=== PATIENT | female | born 1955 | race Caucasian/White ===

== ENCOUNTER 2019-05-29 21:42 | Inpatient (IN) | payer OTHER ==
[~2019-05-29] VITALS: Ht 170.2 cm; Wt 74.4 kg
[~2019-05-29 21:42] MED LIST: AMLO10 PO; CARV25 PO; CITA20 PO; FAMO20 PO; HYDACE5 PO; OTC SLEEP AID; RXCLIN PO; TRAZ50 PO
[2019-05-30 00:12] LABS: BASOPHILS ABSOLUTE AUTO 0.04 K/mm3 (0.00-0.23); BASOPHILS PERCENT AUTO 0 % (0-2); EOSINOPHILS ABSOLUTE AUTO 0.14 K/mm3 (0.00-0.68); EOSINOPHILS PERCENT AUTO 1 % (0-6); Hematocrit 40.9 % (33.0-51.0); Hemoglobin 13.5 g/dL (11.5-16.0); IMMATURE GRAN ABSOLUTE AUTO 0.07 K/mm3 (0.00-0.10); IMMATURE GRAN PERCENT AUTO 1 % (0-1); LYMPHOCYTES ABSOLUTE AUTO 1.76 K/mm3 (0.84-5.20); LYMPHOCYTES PERCENT AUTO 15 % (21-46); MONOCYTES ABSOLUTE AUTO 0.91 K/mm3 (0.16-1.47); MONOCYTES PERCENT AUTO 8 % (4-13); Mean Corpuscular Volume 97 fL (80-100); NEUTROPHILS ABSOLUTE AUTO 9.16 K/mm3 (1.96-9.15); NEUTROPHILS PERCENT AUTO 76 % (41-73); Platelet Count 289 K/mm3 (150-400); RDW Standard Deviation 50.9 fL (35.1-46.3); Red Blood Cell Count 4.22 M/mm3 (3.80-5.20); White Blood Cell Count 12.08 K/mm3 (4.00-11.30)
[2019-05-30 00:31] LABS: Alanine Aminotransfer (ALT/SGP 20 U/L (12-78); Albumin, Blood 3.5 g/dL (3.4-5.0); Alk Phos 76 U/L (50-136); Anion Gap 7 mmol/L (6-16); Aspartate Aminotrans (AST/SGOT 12 U/L (12-37); Bilirubin, Total 0.2 mg/dL (0.1-1.0); Blood Urea Nitrogen 15 mg/dL (8-24); Bun/Creatinine Ratio 25.1 (12.0-20.0); CO2, Blood 28 mmol/L (21-32); Calcium, Blood 8.3 mg/dL (8.5-10.1); Chloride, Blood 106 mmol/L (98-108); Globulin, Blood 3.6 g/dL (2.2-4.0); Glomerular Filtration Rate >60 (60-); Glucose, Blood 119 mg/dL (70-99); Potassium, Blood 3.8 mmol/L (3.5-5.5); Sodium, Blood 141 mmol/L (136-145); Total Protein, Blood 7.1 g/dL (6.4-8.2)
[2019-05-30 01:48] LABS: Source, Urine Catheter
[2019-05-30 01:51] LABS: Bilirubin, Urine Neg (Neg); Blood, Urine 1+ (Neg); Glucose Qualitative, Urine Neg (Neg); Ketones, Urine Neg (Neg); Leukocyte Esterase, Urine 1+ (Neg); Nitrite, Urine Pos (Neg); Protein, Urine Neg (Neg); Urobilinogen, Urine NORM (Normal)
[2019-05-30 01:55] LABS: Appearance, Urine Cloudy (Clear); Color, Urine Yellow (P-Yellow)
[2019-05-30 02:03] LABS: Bacteria Many /hpf; Red Blood Cells, Urine 0-2 /hpf (0-2); Squamous Epithelial Cells Not Seen /hpf (Few)
--- NOTE | 2019-05-30 02:32 | NUR ---
PT TRANSFERRED TO ROOM APPROX 0115, ORIENTED TO ROOM, PLACED IN GOWN, UNDERCLOTHING REMOVED, BECK CATHETER PLACED, ADMISSION INTERVENTIONS COMPLETE, UA SENT FOLLOWING BECK INSERTION. PT A/O X4, PLEASANT/COOPERATIVE, RATES PAIN AT 8/10. PT CEDS, NC 2L WITH SPO2 95% FOLLOWING ADMINISTRATION OF ANALGESIA PER DEC. WILL CONTINUE TO MONITOR
--- NOTE | 2019-05-30 04:58 | NUR ---
PT REMAINED A/0 X 4, PLEASANT/COOEPRATIVE, VSS. PT REPORTS PAIN WITH ANY MOVEMENT OF THE LEFT HIP, WHILE REPOSITINING. PT MEDICATED PER DEC WITH LESSENING OF PAIN REPORTS FROM 06/23 TO 03/23. BECK REMAINED PATENT AND DRAINING CLEAR YELLOW LIQUID. PT REMAINED NPO FOR PREPARATION OF SURGICAL INTERENTION TODAY. SURGICAL PACKET ON CHART, BLOOD CONSENT SIGNED.
--- NOTE | 2019-05-30 09:44 | NUR ---
DR CASTELLON WAS HERE EARLIER, REPORTED TO HOLD CERTAIN MEDS, SEE EMAR.
--- NOTE | 2019-05-30 09:45 | NUR ---
DR RAM HERE TO SEE PT. PT BEEN NPO.
--- NOTE | 2019-05-30 13:00 | NUR ---
PT TO HAVE PROCEDURE IN OWN BED WITH OTHER STAFF.
--- NOTE | 2019-05-30 13:28 | NUR ---
1310- IN PACU FOR PRE OP HOLDING. C/O SEVERE PAIN WITH ANY MOVEMENT. DIAPHORETIC. LOOSE NON-PROD COUGH. O2 ON AT 3L/MIN.
--- NOTE | 2019-05-30 14:44 | NUR ---
1420-PT IN 04/[address] MANCILLA NOTIFIED PT MED WITH FENTANYL 25MCG WHICH WORKED VERY WELL. DR ALSO NITIFIED OF PTS LOW O2 SATS. INSPIRATORY AND EXPIRATORY WHEEZES AND LOOSE COUGH. PT INSTRUCTED IN USE OF IS, VERY POOR PT EFFORT. 1445- UDN PER DR. MANCILLA. PT AGAIN NOT WANTING TO DO TRY TO USE IT BUT ENCOURAGED TO FINISH TREATMENT.
--- NOTE | 2019-05-30 15:33 | NUR ---
REPORT GIVEN TO OTHER RN HTracee. WHO WILL BE TAKING OVER CARE AT THIS TIME. PT CONT TO BE OUT OF ROOM FOR PROCEDURE.
--- NOTE | 2019-05-30 16:15 | NUR ---
ASSUMING CARE OF PT
--- NOTE | 2019-05-30 18:30 | NUR ---
05/30/19 1830 Alexis Spencer LATE ENTRY: 1703 ASSUMED CARE OF PATIENT. LEFT YAAKOV UNDERWAY. WOUND CLOSED AND DRESSING APPLIED AT 1730. PATIENT REPOSITIONED ON HANA TABLE W/ BOOTS REMOVED/LEGS SECURED W/STRAP ON PLATFORM ATTACHMENT. LEFT ARM PREPPED AND DRAPED. SURGERY OF LEFT ORIF STARTED @1755
[2019-05-31 04:45] LABS: BASOPHILS ABSOLUTE AUTO 0.02 K/mm3 (0.00-0.23); BASOPHILS PERCENT AUTO 0 % (0-2); EOSINOPHILS PERCENT AUTO 0 % (0-6); Hematocrit 36.7 % (33.0-51.0); Hemoglobin 11.5 g/dL (11.5-16.0); IMMATURE GRAN ABSOLUTE AUTO 0.05 K/mm3 (0.00-0.10); IMMATURE GRAN PERCENT AUTO 0 % (0-1); LYMPHOCYTES ABSOLUTE AUTO 0.77 K/mm3 (0.84-5.20); LYMPHOCYTES PERCENT AUTO 5 % (21-46); MONOCYTES ABSOLUTE AUTO 0.98 K/mm3 (0.16-1.47); MONOCYTES PERCENT AUTO 7 % (4-13); Mean Corpuscular HGB 31.4 pg (26.0-34.0); Mean Corpuscular HGB Conc 31.3 g/dL (31.5-36.5); Mean Platelet Volume 9.3 fL (9.1-12.4); NEUTROPHILS ABSOLUTE AUTO 12.76 K/mm3 (1.96-9.15); NEUTROPHILS PERCENT AUTO 88 % (41-73); Platelet Count 237 K/mm3 (150-400); RDW Standard Deviation 51.7 fL (35.1-46.3); Red Blood Cell Count 3.66 M/mm3 (3.80-5.20); White Blood Cell Count 14.58 K/mm3 (4.00-11.30)
[2019-05-31 04:46] LABS: Mean Corpuscular Volume 100 fL (80-100)
[2019-05-31 05:05] LABS: Anion Gap 8 mmol/L (6-16); Blood Urea Nitrogen 12 mg/dL (8-24); Bun/Creatinine Ratio 22.8 (12.0-20.0); CO2, Blood 23 mmol/L (21-32); Calcium, Blood 7.8 mg/dL (8.5-10.1); Chloride, Blood 107 mmol/L (98-108); Creatinine, Blood 0.53 mg/dL (0.40-1.00); Glomerular Filtration Rate >60 (60-); Glucose, Blood 142 mg/dL (70-99); Potassium, Blood 4.3 mmol/L (3.5-5.5); Sodium, Blood 138 mmol/L (136-145)
--- NOTE | 2019-05-31 06:46 | NUR ---
SUMMARY POD #1 PT HAS DONE WELL THROUGHTHE NIGHT. AQUACEL TO LEFT HIP REMAINS C/D/I. SPLINT TO LEFT ARM, ARM ELAVATED ON PILLOWS. ICE TO BOTH EXTREMITIES. PT CAN WIGGLE TOES AND FINGERS. CIRC WNL. VSS, O2 VIA OXIMIZER @ 5 L, CONTINUOUS BIOX AT BEDSIDE. O2 SATS REMAIN ABOVE 90%. PT STATES PAIN IS TOLERABLE. CALL LIGHT IN REACH
--- NOTE | 2019-05-31 08:54 | NUR ---
DISCUSSED PT'S STATUS WITH DR CASTELLON INCLUDING RESPIRATORY STATUS AND ABX.
--- NOTE | 2019-05-31 11:46 | NUR ---
DISCUSSED PT'S STATUS WITH DR RAM AND
--- NOTE | 2019-05-31 18:00 | NUR ---
SHIFT SUMMARY PT EATING AND DRINKING. PT UP TO CHAIR FOR MEALS OTHERWISE PT REPORTS NOT ABLE TO SIT UP VERY LONG EVEN AT HOME R/T CBP. PT BEEN ASSISTED WITH ADL'S PRN. PT HAS CONT BIOX IN PLACE. PT NOW ON 2L02NC WITH O2 SAT ABOVE 90%. I/S BEEN ENCOURAGED. CALL LIGHT IN REACH, USING APPR.
--- NOTE | 2019-06-01 04:50 | NUR ---
SHIFT SUMMARY PT POD#1 LEFT HIP + LUE PINNING. AAOX4. DISCOMFORT AT TOLERABLE LEVEL T/O NIGHT. NO NAUSEA/EMESIS. PT UP FROM CHAIR YESTARDAY EVENING TO BED, 2 PERSON MODERATE ASSIST. DRESSING TO LEFT HIP + LUE D/C/I. MOVES ALL TOES/FINGERS WELL, BRISK CAP REFILL ALL EXTREMITIES, DENIES N/T. PT RESTED WELL THIS NOC SHIFT + PT RESTING AT THIS TIME. NADN. CALL LIGHT WITHIN REACH. ENCOURAGE PT/OT TODAY + UP TO CHAIR FOR MEALS.
--- NOTE | 2019-06-01 06:30 | NUR ---
D/C CATH PER RN. CATH IN [facility] DONE
--- NOTE | 2019-06-01 15:48 | NUR ---
REPORT CALLED [facility]. AWAITING TRANSPORT AT THIS TIME.
--- NOTE | 2019-06-01 16:08 | NUR ---
PT DISCHARGED TO [facility] AT APPROXIMATLEY 1350. PT LEFT IN W/C WITH OXYGEN. VSS.
== END 2019-06-01 16:04 | DRG 469 ==
LOC: ER 21:42 → SURS 05-30 00:10
PROVIDERS: Emergency Medicine; Orthopaedic Surgery; ADMIT Hospitalist
PROC: 2W39X1Z Immobilization of Left Upper Extremity using Splint (ICD-10-PCS; 2019-05-29)
PROC: 0SRB0JA Replacement of Left Hip Joint with Synthetic Substitute, Uncemented, Open Approach (ICD-10-PCS; principal; 2019-05-30 14:15)
PROC: 0PSJ04Z Reposition Left Radius with Internal Fixation Device, Open Approach (ICD-10-PCS; 2019-05-30 14:15)
DX: S82.302A Unspecified fracture of lower end of left tibia, initial encounter for closed fracture (principal); S72.002A Fracture of unspecified part of neck of left femur, initial encounter for closed fracture; N39.0 Urinary tract infection, site not specified; W10.9XXA Fall (on) (from) unspecified stairs and steps, initial encounter; Y92.009 Unspecified place in unspecified non-institutional (private) residence as the place of occurrence of the external cause; I10 Essential (primary) hypertension; F32.9 Major depressive disorder, single episode, unspecified; G47.00 Insomnia, unspecified; M79.7 Fibromyalgia; K21.9 Gastro-esophageal reflux disease without esophagitis; F17.210 Nicotine dependence, cigarettes, uncomplicated; Z86.73 Personal history of transient ischemic attack (TIA), and cerebral infarction without residual deficits; Z88.5 Allergy status to narcotic agent; Z88.0 Allergy status to penicillin; Z79.899 Other long term (current) drug therapy
CPT/HCPCS: 29125; 36415; 71045; 72170; 73080; 73100; 73110; 73502; 80048; 80053; 81001; 85025; 87086; 88305; 88311; 93005; 93010; 94762; 96374-59; 96376-59; 97110; 97116; 97162; 97166; 97530; 99285-25; A9270; C1713; C1776; J0171; J0690; J0696; J0735; J1100; J1650; J1885; J1940; J2250; J2370; J2405; J2704; J2795; J3010; J7120

== ENCOUNTER 2019-08-10 08:18 | Day surgery (SDC) | payer OTHER | END 2019-08-10 22:35 | disposition home or self-care (01) | LOC: MOI US 08:18 | DX: C50.911 Malignant neoplasm of unspecified site of right female breast (principal); Z17.0 Estrogen receptor positive status [ER+]; Z79.899 Other long term (current) drug therapy; Z88.0 Allergy status to penicillin; Z88.5 Allergy status to narcotic agent; Z91.041 Radiographic dye allergy status | CPT/HCPCS: 19083; 76642; 77065; 88305; 88360; A4648; G0279 ==

== ENCOUNTER → 2019-10-26 | Outpatient (CLI) | payer OTHER ==
[2019-10-26 18:42] LABS: BASOPHILS ABSOLUTE AUTO 0.04 K/mm3 (0.00-0.23); BASOPHILS PERCENT AUTO 1 % (0-2); EOSINOPHILS PERCENT AUTO 2 % (0-6); Hematocrit 44.5 % (33.0-51.0); Hemoglobin 14.6 g/dL (11.5-16.0); IMMATURE GRAN ABSOLUTE AUTO 0.02 K/mm3 (0.00-0.10); IMMATURE GRAN PERCENT AUTO 0 % (0-1); LYMPHOCYTES ABSOLUTE AUTO 2.84 K/mm3 (0.84-5.20); LYMPHOCYTES PERCENT AUTO 34 % (21-46); MONOCYTES PERCENT AUTO 7 % (4-13); Mean Corpuscular HGB 29.9 pg (26.0-34.0); Mean Corpuscular HGB Conc 32.8 g/dL (31.5-36.5); Mean Corpuscular Volume 91 fL (80-100); Mean Platelet Volume 9.8 fL (9.1-12.4); NEUTROPHILS ABSOLUTE AUTO 4.65 K/mm3 (1.96-9.15); NEUTROPHILS PERCENT AUTO 56 % (41-73); Platelet Count 326 K/mm3 (150-400); RDW Standard Deviation 50.4 fL (35.1-46.3); Red Blood Cell Count 4.88 M/mm3 (3.80-5.20); White Blood Cell Count 8.35 K/mm3 (4.00-11.30)
== END | disposition home or self-care (01) ==
LOC: LAB 18:01 → LAB SHORT 18:01
PROVIDERS: Family Medicine
DX: R73.09 Other abnormal glucose (principal); K92.2 Gastrointestinal hemorrhage, unspecified
CPT/HCPCS: 83036; 85025

== ENCOUNTER 2019-10-30 07:27 | Day surgery (SDC) | payer OTHER | END 2019-10-30 23:02 | disposition home or self-care (01) | LOC: MOI US 07:27 | DX: C50.411 Malignant neoplasm of upper-outer quadrant of right female breast (principal); Z17.0 Estrogen receptor positive status [ER+] | CPT/HCPCS: 19083; 77065; 88305; 88342; 88360; A4648 ==

== ENCOUNTER 2019-11-26 05:57 | Day surgery (SDC) | payer OTHER ==
[~2019-11-26] VITALS: Ht 167.6 cm; Wt 76.2 kg
[~2019-11-26 05:57] MED LIST changes: +Colace100 MG PO; +TRAZ100 PO; +TYLENOL PM PO; +Zofran4 MG PO
--- NOTE | 2019-11-26 08:09 | NUR ---
PT ADMITTED TO [facility]. AGREES WITH PLANNED SURGERY. LUNG SOUNDS DIMINSHED T/O.
[2019-11-26 08:53] LABS: Anion Gap 5 mmol/L (6-16); Blood Urea Nitrogen 10 mg/dL (8-24); Bun/Creatinine Ratio 15.1 (12.0-20.0); CO2, Blood 28 mmol/L (21-32); Chloride, Blood 108 mmol/L (98-108); Creatinine, Blood 0.66 mg/dL (0.40-1.00); Glomerular Filtration Rate >60 (60-); Glucose, Blood 106 mg/dL (70-99); Potassium, Blood 4.1 mmol/L (3.5-5.5); Sodium, Blood 141 mmol/L (136-145)
== END 2019-11-26 11:36 | disposition home or self-care (01) ==
LOC: ORSCMMR 05:57 → ORD 09:00 → ORSCMMR 09:00
PROVIDERS: Surgery
PROC: B543ZZA Ultrasonography of Right Jugular Veins, Guidance (ICD-10-PCS; principal; 2019-11-26 09:00)
PROC: 05HM33Z Insertion of Infusion Device into Right Internal Jugular Vein, Percutaneous Approach (ICD-10-PCS; principal; 2019-11-26 09:00)
DX: C50.411 Malignant neoplasm of upper-outer quadrant of right female breast (principal); I10 Essential (primary) hypertension; F17.210 Nicotine dependence, cigarettes, uncomplicated; K21.9 Gastro-esophageal reflux disease without esophagitis; Z79.899 Other long term (current) drug therapy
CPT/HCPCS: 77001; 80048; A9270-GY; C1788; J0690; J1642; J2250; J2704; J3010; J7120

== ENCOUNTER → 2019-12-28 | Outpatient (CLI) | payer OTHER ==
[2019-12-28 12:37] LABS: Alanine Aminotransfer (ALT/SGP 22 U/L (12-78); Albumin, Blood 2.9 g/dL (3.4-5.0); Albumin/Globulin Ratio 0.8 (0.8-1.8); Alk Phos 91 U/L (50-136); Anion Gap 7 mmol/L (6-16); Aspartate Aminotrans (AST/SGOT 21 U/L (12-37); Bilirubin, Total 0.2 mg/dL (0.1-1.0); Blood Urea Nitrogen 10 mg/dL (8-24); Bun/Creatinine Ratio 15.4 (12.0-20.0); CO2, Blood 28 mmol/L (21-32); Calcium, Blood 8.9 mg/dL (8.5-10.1); Chloride, Blood 105 mmol/L (98-108); Creatinine, Blood 0.65 mg/dL (0.40-1.00); Globulin, Blood 3.8 g/dL (2.2-4.0); Glomerular Filtration Rate >60 (60-); Glucose, Blood 165 mg/dL (70-99); Potassium, Blood 4.9 mmol/L (3.5-5.5); Sodium, Blood 140 mmol/L (136-145); Total Protein, Blood 6.7 g/dL (6.4-8.2)
== END ==
LOC: LAB SHORT 11:21 → LAB 11:21
PROVIDERS: Internal Medicine Hematology & Oncology
DX: C50.919 Malignant neoplasm of unspecified site of unspecified female breast (principal); R42 Dizziness and giddiness; Z17.1 Estrogen receptor negative status [ER-]
CPT/HCPCS: 80053

== ENCOUNTER → 2020-03-31 | Outpatient (CLI) | payer OTHER ==
[2020-03-31 19:57] LABS: BASOPHILS ABSOLUTE AUTO 0.07 K/mm3 (0.00-0.23); BASOPHILS PERCENT AUTO 1 % (0-2); EOSINOPHILS ABSOLUTE AUTO 0.34 K/mm3 (0.00-0.68); EOSINOPHILS PERCENT AUTO 4 % (0-6); Hematocrit 42.7 % (33.0-51.0); Hemoglobin 13.7 g/dL (11.5-16.0); IMMATURE GRAN ABSOLUTE AUTO 0.02 K/mm3 (0.00-0.10); IMMATURE GRAN PERCENT AUTO 0 % (0-1); LYMPHOCYTES ABSOLUTE AUTO 1.81 K/mm3 (0.84-5.20); LYMPHOCYTES PERCENT AUTO 23 % (21-46); MONOCYTES ABSOLUTE AUTO 0.65 K/mm3 (0.16-1.47); MONOCYTES PERCENT AUTO 8 % (4-13); Mean Corpuscular HGB 33.2 pg (26.0-34.0); Mean Corpuscular HGB Conc 32.1 g/dL (31.5-36.5); Mean Corpuscular Volume 103 fL (80-100); Mean Platelet Volume 9.7 fL (9.1-12.4); NEUTROPHILS ABSOLUTE AUTO 5.04 K/mm3 (1.96-9.15); NEUTROPHILS PERCENT AUTO 64 % (41-73); Platelet Count 282 K/mm3 (150-400); RDW Coefficient Variation 15.3 % (11.7-14.2); RDW Standard Deviation 59.7 fL (35.1-46.3); Red Blood Cell Count 4.13 M/mm3 (3.80-5.20); White Blood Cell Count 7.93 K/mm3 (4.00-11.30)
[2020-03-31 20:50] LABS: Alanine Aminotransfer (ALT/SGP 22 U/L (12-78); Albumin, Blood 3.9 g/dL (3.4-5.0); Albumin/Globulin Ratio 1.1 (0.8-1.8); Alk Phos 74 U/L (50-136); Anion Gap 7 mmol/L (6-16); Aspartate Aminotrans (AST/SGOT 12 U/L (12-37); Bilirubin, Total 0.4 mg/dL (0.1-1.0); Blood Urea Nitrogen 7 mg/dL (8-24); Bun/Creatinine Ratio 10.3 (12.0-20.0); CO2, Blood 27 mmol/L (21-32); Calcium, Blood 8.9 mg/dL (8.5-10.1); Chloride, Blood 106 mmol/L (98-108); Creatinine, Blood 0.68 mg/dL (0.40-1.00); Globulin, Blood 3.5 g/dL (2.2-4.0); Glomerular Filtration Rate >60 (60-); Glucose, Blood 100 mg/dL (70-99); Potassium, Blood 3.9 mmol/L (3.5-5.5); Sodium, Blood 140 mmol/L (136-145); Total Protein, Blood 7.4 g/dL (6.4-8.2)
== END ==
LOC: LAB SHORT 15:36 → LAB 15:36
PROVIDERS: Internal Medicine Hematology & Oncology
DX: C50.919 Malignant neoplasm of unspecified site of unspecified female breast (principal)
CPT/HCPCS: 80053; 85025

== ENCOUNTER 2020-04-25 08:45 | Day surgery (SDC) | payer OTHER ==
[~2020-04-25] VITALS: Ht 167.6 cm; Wt 75.1 kg
[~2020-04-25 08:45] MED LIST changes: +DIPH50 PO; +LOPE2C PO; +PRED20 PO
--- NOTE | 2020-04-25 10:49 | NUR ---
History, Chart, Medications and Allergies reviewed before start of procedure. LS DIMINISHED T.O, COURSE COUGH NOTED. Patient confirms NPO status and agrees with scheduled surgery. Pre-Op teaching done. Pt verbalizes understanding. Patient States Post-Procedure ride home has been arranged.
--- NOTE | 2020-04-25 14:30 | NUR ---
DECREASE SATS, TITRATED O2/NC TO KEEP SATS >90%. LUNGS WET/COURSE/WHEEZE NOTED, WILL GIVE DUO NEBULIZER PER ORDERS.
--- NOTE | 2020-04-25 16:11 | NUR ---
PATIENT REQUIRING O2 4L/NC TO KEEP SATS >90%. INCENTIVE SPIROMETRY AND COUGH AND DEEP BREATHING EXERCISES BEING DONE. OXYGEN LEVELS IMPROVING AND TITRATING O2 TO 1L/NC WITH SATS 91%. WHEN O2 TURNED OFF, PATIENTS SATS REMAINING AT 88%. REPOSITION PATIENT TO DANGLE AT BEDSIDE WITH VERY SLIGHT IMPROVEMENT TO 89 TO 90%. CALL OUT TO DR GORDON WITH UPDATE.
--- NOTE | 2020-04-25 16:18 | NUR ---
DR GORDON CALLED BACK, NEW ORDERS FOR EXTENDED STAY DUE TO O2 DEMANDS. WILL PLACE ORDER AND GET A ROOM ASSIGNMENT.
--- NOTE | 2020-04-25 16:20 | NUR ---
04/25/20 1620 Alanna Montana VERIFICATIONS: EDIT CHART.
--- NOTE | 2020-04-25 16:54 | NUR ---
REPORTED OFF TO LEE ESPOSITO RN. PATIENT STABLE WITH 1L/NC IN PLACE.
--- NOTE | 2020-04-26 04:51 | NUR ---
SHIFT SUMMARY POD 1 R. MASTECTOMY. BREAST BINDER AND DRESSING IN PLACE, APPEARS CDI WITHOUT ANY NOTED DRAINAGE. KEREN TO RUQ APPEARS CDI WITH BULB COMPRESSED AND DRAINING SANGUINEOUS FLUID. PAIN MANAGED WITH 2 NORCO TABS. UP IN ROOM W/SBA, AMBULATING TO BATHROOM. IS VOIDING, VSS. SPO2 AT 93% ON 0.5L NC, ENCOURAGED FREQUENT TURN/COUGH/DB. WILL CONT TO MONITOR AND GIVE REPORT TO ONCOMING RN.
--- NOTE | 2020-04-26 08:47 | NUR ---
O2 LEVELS PT TAKES OFF O2 TO EAT BREAKFAST. REFUSES TO PLACE UNTIL FINISHED WITH BREAKFAST. AFTER MEAL, PT SATS AT 86%. 1L NC PLACED. AFTER 3 MINS O2 LEVELS ARE AT 92%.
--- NOTE | 2020-04-26 12:16 | NUR ---
O2 EVAL PT DOES NOT QUALIFY FOR HOME O2. O2 SAT WENT UP WITH AMBULATION. WHEN RESTING IN BED POST THIS WALK, O2 SATS 87% ON RA. 1L APPLIED AND SATS INCREASED. DR GORDON UPDATED. WILL CONTINUE TO MONITOR, ENCOURAGED TCDB, AND IS USE. SPOUSE CALLED AND UPDATED WITH PLAN OF CARE PER PT REQUEST.
--- NOTE | 2020-04-26 13:54 | NUR ---
Patient is lying in bed and alert. Patient tells me about her recent surgery and the favorable results. Patient explains about the many surgeries and medical challenges she has had to overcome. Patient explains about her spouse of 21 years (not officially ) and the wonderful relationship that she has with him. Patient speaks of her Christianity tiago and the spiritual journey she has been on for so many years. Patient tells me personal information and about her fears. I provide therapeutic listening and prayer. I also normalize patient's experience and reinforce helpful attitudes and practices. I will continue to remain available to patient and family.
--- NOTE | 2020-04-26 15:33 | NUR ---
RA TRIAL PT DID BETTER WITH THIS TRIAL BUT STILL DROPPED BELOW 90%. AFTER O2 TURNED OFF PT DROPPED TO 88% AND MAINTAINED THERE FOR 3 MINS. O2 TURNED BACK ON TO 1L. PT RETURNED TO ABOVE 90% AFTER 2 MINS. PT'S DRY COUGH HAS BECOME PRODUCTIVE. FINE WHEEZE T/O LUNG SOUNDS. PT REPORTS SHE FEELS SHE IS BREATHING BETTER.
--- NOTE | 2020-04-26 17:58 | NUR ---
SHIFT SUMMARY PT HAS DONE WELL TODAY BUT UNFORTUNATLY UNABLE TO WEAN O2 OFF. PAIN WELL CONTROLLED, AMBULATING, VOIDING, PASSING GAS & BM.
--- NOTE | 2020-04-27 00:02 | NUR ---
ASSUMED PT CARE FROM CARLINE HOWARD AT 1930 PT RESTING IN BED ALERT AND ORIENTED AND ABLE TO MAKE NEEDS KNOWN. BREAST BINDER IN PLACE WITH KEREN DRAIN NOTED TO RIGHT CHEST WALL; SEROSANGUINEOUS DRAINAGE NOTED IN BULB, WHICH IS COMPRESSED. PRN NORCO GIVEN WITH HS MEDICATIONS WITH EFFECT. PT IS A SBA TO BATHROOM. SHE REMAINS ON 1L OXYGEN VIA NC WITH BIOX LOW 90'S. WILL ENCOURAGE DEEP BREATHING AND COUGHING, WELL USE OF INCENTIVE SPIROMETER WHILE AWAKE. WILL ATTEMPT TO WEAN FROM OXYGEN IN THE AM PT IS CURRENTLY ASLEEP AT THIS TIME. CALL LIGHT IS WITHIN REACH; SHE IS ABLE TO REPOSITION SELF IN BED AND MAKE NEEDS KNOWN.
--- NOTE | 2020-04-27 01:25 | NUR ---
O2 WEAN PLACED PT ON ROOM AIR; PULSE OX IN PLACE. WILL CONTINUE TO MONITOR OXYGEN SATURATIONS. CURRENTLY AT 90% ON ROOM AIR.
--- NOTE | 2020-04-27 01:30 | NUR ---
PLACED BACK ON OXYGEN PT QUICKLY DROPPED TO 84% ON ROOM AIR WHILE SLEEPING. PLACED BACK ON 1L OF OXYGEN VIA NC; OXYGEN SATURATIONS CURRENTLY AT 92%
--- NOTE | 2020-04-27 04:58 | NUR ---
END OF SHIFT SUMMARY NO SIGNIFICANT CHANGES SINCE ASSUMED PT CARE NOTE. KEREN DRAIN PUT OUT 20CC OF SEROSANGUINEOUS DRAINGE. PT MEDICATED FOR PAIN X1 THIS SHIFT. BREAST BINDER REMAINS IN PLACE. PT ABLE TO AMBULATE TO BATHROOM INDEPENDENTLY. REMAINED ON 1L OF OXYGEN T/O NIGHT. ATTEMPTED WEAN X2 THIS SHIFT. PT ABLE TO MAINTAIN ON ROOM AIR WITH OXYGEN SATURATIONS 88-90%. HOWEVER, WHILE SLEEPING OXYGEN SATURATIONS DROPPED TO 84%. PT PLACED BACK ON 1L OF OXYGEN. PT STATES AT HOME SHE OCCASIONALLY FEELS LIGHT HEADED AT TIMES; HOWEVER, DOES NOT HAVE ANY WAY TO MONITOR HER OXYGEN LEVELS. PT CLAIMS SHE SMOKES ABOUT 6 CIGARETTES PER DAY X30 YEAR HISTORY OF SMOKING. SHE HAS A PRODUCTIVE COUGH. LUNG SOUNDS FLUCUTATE BETWEEN BEING WHEEZY, COARSE, AND DIMINISHED. SHE IS ABLE TO DEEP BREATHE AND COUGH EFFECTIVELY. WILL CONTINUE TO MONITOR UNTIL REPORT IS HANDED OFF TO ONCOMING RN.
--- NOTE | 2020-04-27 13:57 | NUR ---
Patient is sitting up in bed and watching "The Finn is Right." Patient struggles to concentrate while "her show" is on. Patient does talk about my previous visit and that my visit was what she was praying for. I Patient discusses the many health struggles and what she may be facing. I listen empathically and provide pastoral family counselor( between [employer]) and prayer. Patient responds well and shows signs of an elevated mood. I will continue to remain available to patient and family.
--- NOTE | 2020-04-27 18:20 | NUR ---
DISCHARGE PT ESCORTED OUT VIA W/C. O2 DELIVERED FROM [facility]. PAIN WEL CONTROLLED. EATING, DRINKING, VOIDING, BM'S. AMBULATING WELL. DR GORDON ROUNDED AND DISCHARGE ORDERS RECIEVED. [facility] PROVIDING TRANSPORTATION.
== END 2020-04-27 18:30 | disposition home or self-care (01) ==
LOC: NM 08:45 → ORSCMMR 08:45 → NM 10:00 → SURS 16:53 → ORSCMMR 04-27 18:30 → SURS 04-27 18:30 → NM 04-27 18:30
PROVIDERS: Surgery
PROC: 0HBT0ZZ Excision of Right Breast, Open Approach (ICD-10-PCS; principal; 2020-04-25 11:00)
PROC: 07B50ZX Excision of Right Axillary Lymphatic, Open Approach, Diagnostic (ICD-10-PCS; principal; 2020-04-25 11:00)
DX: C50.411 Malignant neoplasm of upper-outer quadrant of right female breast (principal); C77.3 Secondary and unspecified malignant neoplasm of axilla and upper limb lymph nodes; I10 Essential (primary) hypertension; F17.210 Nicotine dependence, cigarettes, uncomplicated; K21.9 Gastro-esophageal reflux disease without esophagitis; Z79.899 Other long term (current) drug therapy
CPT/HCPCS: 38792; 88307; 88342; 94761; A9270-GY; A9520; J0690; J1100; J2250; J2370; J2405; J2704; J2710; J2765; J3010; J7120; Q9968

== ENCOUNTER → 2021-07-13 | Outpatient (CLI) | payer OTHER ==
[2021-07-13 20:16] LABS: Alanine Aminotransfer (ALT/SGP 15 U/L (12-78); Albumin, Blood 3.6 g/dL (3.4-5.0); Alk Phos 71 U/L (50-136); Anion Gap 5 mmol/L (6-16); Aspartate Aminotrans (AST/SGOT 12 U/L (12-37); Bilirubin, Total 0.3 mg/dL (0.1-1.0); Blood Urea Nitrogen 6 mg/dL (8-24); Bun/Creatinine Ratio 9.5 (12.0-20.0); CHOL/HDL RATIO 7.4; CO2, Blood 26 mmol/L (21-32); Calcium, Blood 9.2 mg/dL (8.5-10.1); Chloride, Blood 109 mmol/L (98-108); Cholesterol 206 mg/dL (50-200); Creatinine, Blood 0.63 mg/dL (0.40-1.00); Globulin, Blood 3.7 g/dL (2.2-4.0); Glomerular Filtration Rate >60 (60-); Glucose, Blood 90 mg/dL (70-99); HDL Cholesterol 28 mg/dL (>39); LDL/HDL RATIO Unable to Calculate; Low Density Lipoprotein Chol Unable to Calculate mg/dL (0-110); Sodium, Blood 140 mmol/L (136-145); Total Protein, Blood 7.3 g/dL (6.4-8.2); Triglycerides 422 mg/dL (30-160); Very Low Density Lipoprot Chol Unable to Calculate mg/dL (6-32)
== END | disposition home or self-care (01) ==
LOC: LAB 17:25 → LAB SHORT 17:25
PROVIDERS: Family Medicine
DX: I10 Essential (primary) hypertension (principal); E78.5 Hyperlipidemia, unspecified
CPT/HCPCS: 80053; 80061

== ENCOUNTER 2023-10-10 22:37 | Emergency (ER) | payer OTHER ==
[~2023-10-10] VITALS: Ht 170.2 cm; Wt 56.2 kg
[~2023-10-10 22:37] MED LIST changes: +CARV6.25 PO; +CITALOPRAM HBR10 MG PO; +Desyrel150 MG PO; +GNP PAIN RLF P1 EACH PO; -TRAZ100 PO; -TYLENOL PM PO
[2023-10-11 02:30] VITALS: BP 142/76
--- NOTE | 2023-10-14 23:42 | NUR ---
REVIEWED PT'S INFORMATION R/T CURRENT ADMISSION
== END 2023-10-11 02:47 | disposition home or self-care (01) ==
LOC: ER 22:37
DX: U07.1 COVID-19 (principal); S70.02XA Contusion of left hip, initial encounter; J44.9 Chronic obstructive pulmonary disease, unspecified; W01.10XA Fall on same level from slipping, tripping and stumbling with subsequent striking against unspecified object, initial encounter; Z88.0 Allergy status to penicillin; Z88.5 Allergy status to narcotic agent; Z88.6 Allergy status to analgesic agent; Z91.02 Food additives allergy status; Z79.899 Other long term (current) drug therapy; Z79.52 Long term (current) use of systemic steroids; K21.9 Gastro-esophageal reflux disease without esophagitis; G47.00 Insomnia, unspecified; I10 Essential (primary) hypertension; F17.200 Nicotine dependence, unspecified, uncomplicated
CPT/HCPCS: 71045; 73502; 93005; 93010; 96374; 99284-25; A9270; J1885; J7512

== ENCOUNTER 2023-10-14 17:44 | Inpatient (IN) | payer OTHER ==
[~2023-10-14] VITALS: Ht 157.5 cm; Wt 54.4 kg
[2023-10-14 19:21] LABS: Hematocrit 35.4 % (33.0-51.0); Hemoglobin 12.1 g/dL (11.5-16.0); Mean Corpuscular HGB 33.2 pg (26.0-34.0); Mean Corpuscular HGB Conc 34.2 g/dL (31.5-36.5); Mean Corpuscular Volume 97 fL (80-100); Mean Platelet Volume 9.5 fL (9.1-12.4); NRBC ABSOLUTE 0.03 K/mm3 (0.00-0.02); NRBC Auto 0.2 /100 WBC (0.0-0.2); Platelet Count 304 K/mm3 (150-400); RDW Coefficient Variation 13.9 % (11.7-14.2); RDW Standard Deviation 49.1 fL (35.1-46.3); Red Blood Cell Count 3.64 M/mm3 (3.80-5.20); White Blood Cell Count 12.38 K/mm3 (4.00-11.30)
[2023-10-14 19:41] LABS: Albumin, Blood 2.6 g/dL (3.4-5.0); Albumin/Globulin Ratio 0.6 (0.8-1.8); Bilirubin, Total 0.5 mg/dL (0.1-1.0); Bun/Creatinine Ratio 23.7 (12.0-20.0); Calcium, Blood 8.8 mg/dL (8.5-10.1); Creatinine, Blood 0.47 mg/dL (0.40-1.00); Globulin, Blood 4.7 g/dL (2.2-4.0); Potassium, Blood 3.2 mmol/L (3.5-5.5); Total Protein, Blood 7.3 g/dL (6.4-8.2)
[2023-10-14 20:16] LABS: BAND PERCENT MAN 41 % (0-8); BASOPHILS PERCENT MAN 0 % (0-2); EOSINOPHILS PERCENT MAN 0 % (0-6); LYMPHOCYTES ABSOLUTE MAN 0.99 K/mm3 (0.84-5.20); LYMPHOCYTES PERCENT MAN 8 % (21-46); METAMYELOCYTE ABSOLUTE MAN 0.12 K/mm3 (0.00-0.00); METAMYELOCYTE PERCENT MAN 1 % (0-0); MONOCYTES ABSOLUTE MAN 0.99 K/mm3 (0.16-1.47); MONOCYTES PERCENT MAN 8 % (4-13); NEUTROPHILS ABSOLUTE MAN 10.27 K/mm3 (1.96-9.15); SEG NEUTROPHILS PERCENT MAN 42 % (41-73); TOTAL CELLS COUNTED 100
[2023-10-14 20:58] LABS: Source, Urine Straight Cath
[2023-10-14 21:12] LABS: Bilirubin, Urine Neg (Neg); Blood, Urine 3+ (Neg); Glucose Qualitative, Urine Neg (Neg); Ketones, Urine 2+ (Neg); Leukocyte Esterase, Urine 1+ (Neg); Nitrite, Urine Neg (Neg); Protein, Urine 3+ (Neg); Urobilinogen, Urine 1+ (Normal)
[2023-10-14 21:19] LABS: U Amphetamine Screen Not Detected; U Barbituate Screen Not Detected; U Benzodiazapine Screen Not Detected; U Buprenorphine Screen DETECTED; U Cannabinoids Screen Not Detected; U Cocaine Screen Not Detected; U Methadone Screen Not Detected; U Methamphetamine Screen Not Detected; U Opiates Screen Not Detected; U Oxycodone Screen Not Detected; U Phencyclidine Screen Not Detected
[2023-10-14 21:26] LABS: Color, Urine Yellow (P-Yellow)
[2023-10-14 21:27] LABS: Appearance, Urine Clear (Clear)
[2023-10-14 21:29] LABS: Amorphous Light (0-Heavy); Bacteria Mod /hpf; Mucus Mod (0-Heavy); Red Blood Cells, Urine 0-2 /hpf (0-2); Squamous Epithelial Cells Not Seen /hpf (Few)
[2023-10-14 22:28] LABS: Influenza A, PCR NEGATIVE (NEGATIVE); Influenza B, PCR NEGATIVE (NEGATIVE); Resp Syncytial Virus, PCR NEGATIVE (NEGATIVE); SARS-Cov-2 (COVID-19) PCR, MMC NEGATIVE (NEGATIVE)
[2023-10-15 00:48] VITALS: BP 114/81
[2023-10-15 04:06] VITALS: BP 111/66
[2023-10-15 05:51] LABS: Hematocrit 32.4 % (33.0-51.0); Mean Corpuscular HGB 32.4 pg (26.0-34.0); Mean Corpuscular Volume 96 fL (80-100); Mean Platelet Volume 9.6 fL (9.1-12.4); Platelet Count 312 K/mm3 (150-400); RDW Standard Deviation 48.2 fL (35.1-46.3); Red Blood Cell Count 3.39 M/mm3 (3.80-5.20); White Blood Cell Count 9.89 K/mm3 (4.00-11.30)
[2023-10-15 06:11] LABS: Bun/Creatinine Ratio 33.2 (12.0-20.0); Calcium, Blood 8.7 mg/dL (8.5-10.1); Creatinine, Blood 0.51 mg/dL (0.40-1.00); Potassium, Blood 3.1 mmol/L (3.5-5.5)
[2023-10-15 06:36] LABS: BAND PERCENT MAN 14 % (0-8); BASOPHILS PERCENT MAN 0 % (0-2); EOSINOPHILS PERCENT MAN 0 % (0-6); LYMPHOCYTES ABSOLUTE MAN 0.19 K/mm3 (0.84-5.20); LYMPHOCYTES PERCENT MAN 2 % (21-46); MONOCYTES ABSOLUTE MAN 0.19 K/mm3 (0.16-1.47); MONOCYTES PERCENT MAN 2 % (4-13); NEUTROPHILS ABSOLUTE MAN 9.49 K/mm3 (1.96-9.15); SEG NEUTROPHILS PERCENT MAN 82 % (41-73); TOTAL CELLS COUNTED 100
--- NOTE | 2023-10-15 06:37 | NUR ---
report from er received pt arrived a/o very out of breath. pt removed o2 and went to bath room she stated shes been this way for a while now. i didnt see any distress with her sob. once back in bed pt placed on 4L nc and o2 monitored. pt very pleasent answers all questons and isnt in ant distress, swallow intach so snacks given. pt medicated per order of . ivf infusing. pt assisted several times to bathroom having loose stools so sample will be gotten.
[2023-10-15 07:07] VITALS: BP 129/71
[2023-10-15 15:23] VITALS: BP 146/71
--- NOTE | 2023-10-15 17:01 | NUR ---
PT AOX4 AND IS COOPERATIVE OF CARE. PT DOES SEEM TO HAVE ANXIETY ABOUT HER PAST AND TALKS A LOT ABOUT AN EX BOY FRIEND. PT IS ABLE TO MAKE NEEDS KNOWN, BUT HAS FORGOT TO CALL. PT CONTINUES TO HAVE SOB WHEN AMBULATING AROUND AND NEEDS TO HAVE HER 4L O2 ON OR SHE DESATS FAST. CALL LIGHT IS WITHIN REACH WILL CONTINUE TO MONITOR.
[2023-10-15 19:12] VITALS: BP 139/79
[2023-10-16 03:19] LABS: Campylobacter Sp Not Detected (NOT DETECT)
[2023-10-16 03:20] LABS: Adenovirus F 40/41 Not Detected (NOT DETECT); Astrovirus Not Detected (NOT DETECT); Cryptosporidium Not Detected (NOT DETECT); Cyclospora Cayetanensis Not Detected (NOT DETECT); E. Coli O157 Not Detected (NOT DETECT); Entamoeba Histolytica Not Detected (NOT DETECT); Enteroaggregative E. coli-EAEC Not Detected (NOT DETECT); Enteropathogenic E. coli-EPEC Not Detected (NOT DETECT); Enterotoxigenic E. coli-ETEC Not Detected (NOT DETECT); Giardia Lamblia Not Detected (NOT DETECT); Norovirus GI/GII Not Detected (NOT DETECT); Plesiomonas Shigelloides Not Detected (NOT DETECT); Rotavirus A Not Detected (NOT DETECT); Salmonella Sp Not Detected (NOT DETECT); Sapovirus Not Detected (NOT DETECT); Shiga Toxin-prod E. coli-STEC Not Detected (NOT DETECT); Shigella/Enteroin E. coli-EIEC Not Detected (NOT DETECT); Vibrio Cholerae Not Detected (NOT DETECT); Vibrio Sp Not Detected (NOT DETECT); Yersinia Enterocolitica Not Detected (NOT DETECT)
[2023-10-16 05:16] VITALS: BP 135/72
--- NOTE | 2023-10-16 05:17 | NUR ---
SHIFT SUMMARY PT ADMIT FOR COPD EXACERBATION. STOOL COLLECTED TO RULE OUT CDIF. ALL TESTING NEGATIVE. PT ON 4L NC. EXTREME WEAKNESS ON LEFT SIDE. CANNOT RAISE LEFT ARM ABOVE HEAD WITHOUT PAIN. PT STATED SHE IS HOMELESS AND HAS NOWHERE TO GO ONCE DC'D FROM HOSPITAL. HAIR WAS MATTED TO SCALP. THIS RN WASHED PT'S HAIR WITH SHOWER CAP AND COMBED THROUGH ALL OF HER HAIR. WAS ABLE TO REMOVE MATTING AND BRAIDED TO PULL BACK AND OUT OF PT'S FACE.
[2023-10-16 05:29] LABS: BASOPHILS ABSOLUTE AUTO 0.01 K/mm3 (0.00-0.23); BASOPHILS PERCENT AUTO 0 % (0-2); EOSINOPHILS PERCENT AUTO 0 % (0-6); Hematocrit 31.7 % (33.0-51.0); Hemoglobin 10.7 g/dL (11.5-16.0); IMMATURE GRAN ABSOLUTE AUTO 0.09 K/mm3 (0.00-0.10); IMMATURE GRAN PERCENT AUTO 1 % (0-1); LYMPHOCYTES ABSOLUTE AUTO 0.69 K/mm3 (0.84-5.20); LYMPHOCYTES PERCENT AUTO 6 % (21-46); MONOCYTES ABSOLUTE AUTO 0.28 K/mm3 (0.16-1.47); MONOCYTES PERCENT AUTO 2 % (4-13); Mean Corpuscular HGB 31.8 pg (26.0-34.0); Mean Corpuscular HGB Conc 33.8 g/dL (31.5-36.5); Mean Corpuscular Volume 94 fL (80-100); Mean Platelet Volume 9.3 fL (9.1-12.4); NEUTROPHILS PERCENT AUTO 91 % (41-73); Platelet Count 348 K/mm3 (150-400); RDW Coefficient Variation 14.1 % (11.7-14.2); RDW Standard Deviation 48.8 fL (35.1-46.3); Red Blood Cell Count 3.36 M/mm3 (3.80-5.20); White Blood Cell Count 11.47 K/mm3 (4.00-11.30)
[2023-10-16 05:58] LABS: Albumin, Blood 2.2 g/dL (3.4-5.0); Albumin/Globulin Ratio 0.5 (0.8-1.8); Bilirubin, Total 0.2 mg/dL (0.1-1.0); Bun/Creatinine Ratio 46.5 (12.0-20.0); Calcium, Blood 8.5 mg/dL (8.5-10.1); Creatinine, Blood 0.43 mg/dL (0.40-1.00); Globulin, Blood 4.3 g/dL (2.2-4.0); Potassium, Blood 3.6 mmol/L (3.5-5.5); Total Protein, Blood 6.5 g/dL (6.4-8.2)
[2023-10-16 07:33] VITALS: BP 144/87
[2023-10-16 15:53] VITALS: BP 117/66
--- NOTE | 2023-10-16 16:25 | NUR ---
NO ACUTE CHANGES PT IS AOX4 AND COOPERATIVE OF CARE. PT DID START SHIFT WITH A ROUND OF DIARHEA. DR DAVENPORT WAS NOTIFIED AND WAS ALSO INFORMED OF PT STATING SHE HAS A HISTORY OF IBS. MEDICATION WAS ADDED TO EMAR AND ADMINISTERED. PT ALSO DID WELL AMBULATING WITH RT FOR HOME O2 EVAL WITH WALKER. CALL LIGHT IS WITHIN REACH AND CHAIR AND BED ALARM IN USE. WILL CONTINUE TO MONITOR.
[2023-10-16 19:31] VITALS: BP 151/93
[2023-10-17 05:47] VITALS: BP 152/80
--- NOTE | 2023-10-17 06:20 | NUR ---
SHIFT SUMMARY PT SLEPT THROUGH NIGHT. NO COMPLAINTS OR PROBLEMS. PT STATES SHE HAS BEEN FREE OF HEADACHES AND ABLE TO SLEEP WELL SINCE HAVING HAIR MATTING RESOLVED.
[2023-10-17 06:23] LABS: Hematocrit 33.5 % (33.0-51.0); Hemoglobin 11.3 g/dL (11.5-16.0); Mean Corpuscular HGB 32.2 pg (26.0-34.0); Mean Corpuscular HGB Conc 33.7 g/dL (31.5-36.5); Mean Corpuscular Volume 95 fL (80-100); Mean Platelet Volume 9.3 fL (9.1-12.4); Platelet Count 311 K/mm3 (150-400); RDW Coefficient Variation 14.1 % (11.7-14.2); Red Blood Cell Count 3.51 M/mm3 (3.80-5.20); White Blood Cell Count 6.08 K/mm3 (4.00-11.30)
[2023-10-17 06:47] LABS: Albumin, Blood 2.3 g/dL (3.4-5.0); Albumin/Globulin Ratio 0.5 (0.8-1.8); Bilirubin, Total 0.3 mg/dL (0.1-1.0); Bun/Creatinine Ratio 40.9 (12.0-20.0); Calcium, Blood 9.1 mg/dL (8.5-10.1); Creatinine, Blood 0.51 mg/dL (0.40-1.00); Globulin, Blood 4.2 g/dL (2.2-4.0); Potassium, Blood 4.1 mmol/L (3.5-5.5); Total Protein, Blood 6.5 g/dL (6.4-8.2)
[2023-10-17 08:10] LABS: BAND PERCENT MAN 3 % (0-8); BASOPHILS PERCENT MAN 0 % (0-2); EOSINOPHILS PERCENT MAN 0 % (0-6); LYMPHOCYTES ABSOLUTE MAN 0.72 K/mm3 (0.84-5.20); LYMPHOCYTES PERCENT MAN 12 % (21-46); MONOCYTES PERCENT MAN 5 % (4-13); MYELOCYTE ABSOLUTE MAN 0.06 K/mm3 (0.00-0.00); MYELOCYTE PERCENT MAN 1 % (0-0); NEUTROPHILS ABSOLUTE MAN 4.98 K/mm3 (1.96-9.15); SEG NEUTROPHILS PERCENT MAN 79 % (41-73); TOTAL CELLS COUNTED 100
[2023-10-17 08:17] VITALS: BP 142/81
--- NOTE | 2023-10-17 17:35 | NUR ---
SHIFT SUMMARY: PATIENT REQUIRED FULL CONTACT SUPPORT WHILE GETTING UP TO CHAIR AND BSC, C/O FEELING VERY WEAK. WAS SUPPOSED TO BE DISCHARGED BUT THIS AUTHOR FELT THAT SHE WAS NOT INDEPENDENT ENOUGH TO GO BACK TO [facility]. DISCHARGE CANCELLED AND PT/OT RD ORDERED. HAS BEEN ON O2 @ 2 L/MIN NC ALL DAY, BUT REQUIRED INCREASE IN OXYGEN TO 4 L/MIN WITH ACTIVITY. DENIED PAIN. FORGETFUL AT TIMES. BECAME TEARFUL WHEN TALKING ABOUT HER "FRIENDS" THAT WERE SUPPOSED TO COME VISIT HER AND BRING HER BELONGINGS. SHE IS UPSET ABOUT NOT HAVING A MORE PERMANENT HOME AND FEELS VERY ALONE. BLENDING OPERATOR WILL SEE IF WE HAVE CLOTHING FOR HER TO WEAR AT DISCHARGE.
[2023-10-17 19:57] VITALS: BP 132/70
[2023-10-18 03:38] VITALS: BP 138/90
--- NOTE | 2023-10-18 05:23 | NUR ---
SHIFT SUMMARY: SHAWANDA IS A&OX4 WITH SOME FORGETFULNESS NOTED. VSS, O2 VIA NC AT 2 LPM MAINTAINING SATS >90%. ATTENDS IN PLACE, SHE IS A STANDBY ASSIST TO THE BEDSIDE COMMODE AND IS TOLERATING PO INTAKE WELL. 1-PERSON ASSIST FOR AMBULATION INTO THE BATHROOM. SHE IS LYING IN BED WITH THE CALL LIGHT IN REACH, WILL REPORT TO ONCOMING RN.
[2023-10-18 05:58] LABS: Hematocrit 34.5 % (33.0-51.0); Hemoglobin 11.5 g/dL (11.5-16.0); Mean Corpuscular HGB 31.9 pg (26.0-34.0); Mean Corpuscular HGB Conc 33.3 g/dL (31.5-36.5); Mean Corpuscular Volume 96 fL (80-100); Mean Platelet Volume 9.6 fL (9.1-12.4); Platelet Count 327 K/mm3 (150-400); RDW Coefficient Variation 13.9 % (11.7-14.2); RDW Standard Deviation 49.1 fL (35.1-46.3); White Blood Cell Count 5.84 K/mm3 (4.00-11.30)
[2023-10-18 06:13] LABS: Bun/Creatinine Ratio 41.6 (12.0-20.0); Calcium, Blood 8.8 mg/dL (8.5-10.1); Creatinine, Blood 0.46 mg/dL (0.40-1.00); Potassium, Blood 4.2 mmol/L (3.5-5.5)
[2023-10-18 07:33] VITALS: BP 146/72
[2023-10-18 09:24] LABS: BASOPHILS PERCENT MAN 0 % (0-2); EOSINOPHILS PERCENT MAN 0 % (0-6); LYMPHOCYTES ABSOLUTE MAN 0.87 K/mm3 (0.84-5.20); LYMPHOCYTES PERCENT MAN 15 % (21-46); MONOCYTES ABSOLUTE MAN 0.05 K/mm3 (0.16-1.47); MONOCYTES PERCENT MAN 1 % (4-13); SEG NEUTROPHILS PERCENT MAN 84 % (41-73); TOTAL CELLS COUNTED 100
[2023-10-18 15:35] VITALS: BP 140/72
--- NOTE | 2023-10-18 19:33 | NUR ---
SHIFT SUMMARY A&O X 4, VSS. CAN BE FORGETFUL AT TIMES, REORIENTS WELL. IS ANXIOUS REGARDING HER DC DISPOSITION, FEARDUL OF "BEING HOMELESS". PT & OT RECOMMEND PLACEMENT TO SNF UPON DC. IS 1 PERSON ASSIST TO BSC, ATTENDS ON. HAS L SIDED WEAKNESS FROM PREVIOUS STROKE, USES A WALKER. IS ON 2 L'S O2 WIH SATS >90%, WITH EXERTION SHE MAY REQUIRE 4L'S O2. ALTHOUGH THIS SHIFT SHE DID NOT NEED THE INCREASE. IS PLEASANT & COOPERATIVE WITH ALL CARE, BED IN LOW POSITION, CALL LIGHT WITHIN REACH. MAKES NEEDS KNOWN.
[2023-10-18 19:54] VITALS: BP 132/70
[2023-10-19 03:45] VITALS: BP 146/86
--- NOTE | 2023-10-19 04:32 | NUR ---
Patient resting in bed this shift, A&O x4. Up to commode with assistance this shift. O2 at 2 liters NC increseased to 3 liter when up to commode. PRN 650mg tylenol given for left hip/knee pain and effective. VSS.
[2023-10-19 08:16] VITALS: BP 145/82
[2023-10-19 17:58] VITALS: BP 137/96
--- NOTE | 2023-10-19 18:39 | NUR ---
SHIFT SUMMARY ABLE TO GET TO COMMODE SEVERAL TIMES THIS SHIFT, ONE ASSIST. REQUIRING OXYGEN THROUGHOUT SHIFT. MAKING STATEMENT OF HER KIDS NOT KNOWING WHERE SHE IS, DECLINED TO CALL FAMILY, OFFERED TO ASSIST WITH PHONE AND FINDING NUMBERS. VSS. NO C/O PAIN OR DISCOMFORT. EATING WELL. CARES ONGOING.
[2023-10-19 19:18] VITALS: BP 150/80
[2023-10-20 04:28] VITALS: BP 128/79
--- NOTE | 2023-10-20 05:38 | NUR ---
Shift Summary Patient resting in bed this shift. Up to commode at bedside with staff assistance. Denies pain or discomfort when asked.VSS.
[2023-10-20 08:31] VITALS: BP 132/87
[2023-10-20 18:02] VITALS: BP 139/73
--- NOTE | 2023-10-20 18:20 | NUR ---
SHIFT SUMMARY PATIENT ABLE TO TRANSFER 1 MIN ASSIST TO BSC. C/O BACK PAIN THIS SHIFT, LESSENED WITH APAP DOSE. CALL LIGHT WITHIN REACH AT ALL TIMES. CARES ONGOING.
[2023-10-20 19:11] VITALS: BP 129/83
--- NOTE | 2023-10-21 04:13 | NUR ---
SHIFT SUMMARY PATIENT HAD NO ACUTE CHANGES. AXOX 3 WITH CONFUSION AT TIMES. ONE ASSIST W/FWW TO BSC. RT IN FOR BREATHING TX. VSS/AFEBRILE. DENIES CHEST PAIN AND N/V. SOB W/EXERTION. ON 3L O2 NC BASELINE. PIV REMAINS INTACT. COOPERATIVE WITH CARE. CALL LIGHT IN REACH. BED IN LOWEST POSITION. WILL CONTINUE TO MONITOR UNTIL DAY SHIFT NURSE ASSUMES CARE.
[2023-10-21 04:44] VITALS: BP 130/74
[2023-10-21 04:59] LABS: BASOPHILS ABSOLUTE AUTO 0.01 K/mm3 (0.00-0.23); BASOPHILS PERCENT AUTO 0 % (0-2); EOSINOPHILS ABSOLUTE AUTO 0.15 K/mm3 (0.00-0.68); EOSINOPHILS PERCENT AUTO 2 % (0-6); IMMATURE GRAN PERCENT AUTO 1 % (0-1); LYMPHOCYTES PERCENT AUTO 27 % (21-46); MONOCYTES ABSOLUTE AUTO 0.71 K/mm3 (0.16-1.47); MONOCYTES PERCENT AUTO 8 % (4-13); Mean Corpuscular HGB 31.7 pg (26.0-34.0); Mean Corpuscular HGB Conc 33.3 g/dL (31.5-36.5); Mean Corpuscular Volume 95 fL (80-100); Mean Platelet Volume 9.4 fL (9.1-12.4); NEUTROPHILS ABSOLUTE AUTO 5.44 K/mm3 (1.96-9.15); NEUTROPHILS PERCENT AUTO 62 % (41-73); Platelet Count 346 K/mm3 (150-400); RDW Coefficient Variation 13.3 % (11.7-14.2); RDW Standard Deviation 46.5 fL (35.1-46.3); Red Blood Cell Count 3.78 M/mm3 (3.80-5.20); White Blood Cell Count 8.81 K/mm3 (4.00-11.30)
[2023-10-21 05:26] LABS: Bun/Creatinine Ratio 27.2 (12.0-20.0); Calcium, Blood 8.6 mg/dL (8.5-10.1); Creatinine, Blood 0.63 mg/dL (0.40-1.00); Potassium, Blood 4.4 mmol/L (3.5-5.5)
[2023-10-21 07:41] VITALS: BP 141/74
[2023-10-21 15:40] VITALS: BP 115/69
--- NOTE | 2023-10-21 17:55 | NUR ---
SHIFT SUMMARY PT UP TO SIDE OF BED FOR MEALS. REFUSED TO GET INTO CHAIR FOR MEALS. PT STATES HER HIP HURTS TOO MUCH WHEN SITTING UPRIGHT. PT ALSO STATES HER "VERTIGO ACTS UP WHEN SHE SITS TOO LONG". PT WORKED WITH PT/OT TODAY. UP TO [facility] FOR TOILETING. MEDICATED FOR PAIN TWICE THIS SHIFT. NO OTHER ACUTE CHANGES IN ASSESSMENT AT THIS TIME. VS REVIEWED. CALL LIGHT IN REACH. DENIES OTHER NEEDS AT THIS TIME.
[2023-10-21 19:33] VITALS: BP 119/75
[2023-10-22 02:09] VITALS: BP 125/66
--- NOTE | 2023-10-22 05:54 | NUR ---
PT A&O x3, VSS, AFEBRILE, PT ON 3L VIA NC. SOME SOB WITH EXERTION. PT CALM AND COOPERATIVE WITH CARE PROVIDED. PT AMBULATES WITH ASSISTANCE FROM 1P SBA TO BSC. RESP RATE EVEN AND UNLABORED. PT ABLE TO MAKE NEEDS KNOWN, AND CALLS APPROPRIATELY. PT C/O PAIN TO LOWER BACK, PRN APAP GIVEN WITH GOOD RESULTS. PT REQUESTED A WARM BLANKET. CALL LIGHT WITHIN REACH, WCTM.
[2023-10-22 07:32] VITALS: BP 118/74
[2023-10-22 15:03] VITALS: BP 122/68
--- NOTE | 2023-10-22 18:23 | NUR ---
SHIFT SUMMARY PT UP TO BSC INDEPENDENTLY. PT REQUESTS HELP WITH PULLING HER PANTS DOWN AND BEING CLEANED, BUT PATIENT IS CAPABLE OF THIS. PT CALLED STAFF IN ROOM TODAY TO PULL HER GOWN OVER HER SHOULDER. PT INSTRUCTED THAT SHE IS ABLE TO DO THIS AND PT REPLIES "I KNOW, BUT ITS EASIER FOR YOU TO". PT EDUCATED ON THE NEED FOR HER TO BE DOING THINGS HERSELF THAT SHE IS CAPABLE OF. PT STATES SHE UNDERSTANDS. VERY PLEASNAT & THANKFUL FOR CARE. NO OTHER ACUTE CHANGES IN ASSESSMENT AT THIS TIME. VS REVIEWED. CALL LIGHT IN REACH. DENIES OTHER NEEDS AT THIS TIME.
[2023-10-22 19:34] VITALS: BP 116/74
[2023-10-23 02:52] VITALS: BP 135/68
--- NOTE | 2023-10-23 04:51 | NUR ---
SHIFT SUMMARY PT WAS TIRED AND READY FOR BED EARLY. SHE SLEPT THROUGH THE NIGHT WITH MINIMAL INTERRUPTIONS. PLEASANT AND COOPERATIVE WITH CARE.
[2023-10-23 07:41] VITALS: BP 118/76
[2023-10-23 15:09] VITALS: BP 125/77
--- NOTE | 2023-10-23 17:53 | NUR ---
SUMMARY- PT A/O X3-4. SITS AT THE EDGE OF THE BED FOR MEALS. TOLERATING FOOD AND FLUID. HAD 2 VERY SOFT STOOLS TODAY. MEDICATED ONCE WITH IMMODIUM, RECOVERING FROM LOOSE STOOLS. PT PAINFUL WITH AMBUTATION AND SITTING IN CHAIR FROM RECENT FALLS LEAVING HER WITH HIP AND TAILBONE PAIN, PREFERS TO STAY ON HER SIDE AND OFF HER BOTTOM RELATED TO PAIN. MEDICATED ONCE TODAY WITH TYLENOL. STATES MIN RELEIF. AWAITING SNF PLACEMENT
[2023-10-23 19:49] VITALS: BP 111/65
[2023-10-24 02:10] VITALS: BP 121/68
--- NOTE | 2023-10-24 05:02 | NUR ---
SHIFT SUMMARY PT A&O X4, CALM AND COOPERATIVE WITH CARE. PT COMPLAINED OF GENERALIZED PAIN/HIP/TAILBONE PAIN DUE TO PREVIOUS INJURY THAT HAPPENNED YEARS AGO. MEDICATED PER EMAR. PT CONTINENT OF URINE, 1P ASSIST TO BSC WITH FWW AND GB. CURRENTLY ON 3L O2 VIA NC, WITH SATS IN THE 90S. NO BM THIS SHIFT. BED KEPT IN LOWEST POSITION WITH CALL LIGHT IN REACH. AWAITING SNF PLACEMENT. WILL CONTINUE TO MONITOR UNTIL END OF SHIFT.
[2023-10-24 15:47] VITALS: BP 101/85
--- NOTE | 2023-10-24 18:48 | NUR ---
SUMMARY- PT UP IN CHAIR MOST OF THE DAY. USES CALL LIGHT TO MAKE NEEDS KNOWN, KNOWS LIMITS. TOLERATING FOOD AND FLUIDS. CONT TO BE PAINFUL WHEN UP IN CHAIR RELATED TO CHRONIC TAILBONE PAIN FROM FALL. TYLENOL OFFERS A LITTLE RELEIF. CONT OF URINE. CONT WITH OXYGEN 3L (BASELINE 3L)CONT DIM BASES, OCC WHEEZE. MIN DYSPNEA WITH EXERTION. ONE TIME FELT DIZZY AFTER LUNCH, ASSISTED BACK TO BED AND PT NAPPED. AWAITING PLACEMENT. WILL REPORT TO NOC RN
[2023-10-24 20:08] VITALS: BP 125/81
--- NOTE | 2023-10-25 04:38 | NUR ---
SHIFT SUMMARY PT A&O, CALM AND COOPERATIVE WITH CARE. CURRENTLY ON 3L O2 VIA NC, SATS IN THE 90S. PT DENIED HAVING ANY PAIN THAT REQUIRED MEDICATION. CHRONIC TAILBNE PAIN FROM PREVIOUS INJURY IN YEARS PAST. PT CONTINENT AND REQUIRES 1P ASSIST. AWAITING SNF PLACEMENT. NO ACUTE EVENTS THIS SHIFT. BED IN LOWEST POSITION WITH CALL LIGHT IN REACH.
[2023-10-25 07:50] VITALS: BP 115/70
[2023-10-25 15:48] VITALS: BP 133/78
--- NOTE | 2023-10-25 17:16 | NUR ---
SHIFT SUMMARY: PATIENT A/OX4, PLEASANT AND COOPERATIVE c CARE. PATIENT USES CALL LIGHT APPROPRIATELY AND ABLE TO MAKE NEEDS KNOWN. PATIENT DENIES CP/PRESSURE N/V, SOB AND DIZZINESS. PATIENT ON 3L O2 VIA NC AT BASELINE c SPO2 94% THIS SHIFT. PATIENT HAS GOOD APPETITE, CONTINENCE OF BLADDER AND USES BSC c SBA. PATIENT HAS NO COMPLAINTS OR NO NEW CONCERNED THIS SHIFT. PATIENT RECEIVED SCHEDULED MEDS PER EMAR, VITAL SIGNS REVIEWED. NO IV ACCESS PER ORDER. PATIENT AWAITING FOR PLACEMENT. CALL LIGHT IN REACH.
[2023-10-25 19:22] VITALS: BP 118/70
--- NOTE | 2023-10-26 04:04 | NUR ---
NOTE PT RESTING. UP TO BSC X1. C/O OF BACK PAIN. PLACED AN EGG CRATE, FOR COMFORT, TO HER BED. SHE VOICED IMPROVED COMFORT. VSS. H/L. 3L N/C. BED LOW AND LCOKED. CALL LIGHT WITH IN REACH. CARE ONGOING.
[2023-10-26 04:06] VITALS: BP 104/62
[2023-10-26 07:24] VITALS: BP 108/56
[2023-10-26 14:06] VITALS: BP 125/72
--- NOTE | 2023-10-26 15:41 | NUR ---
SHIFT SUMMARY: PATIENT A/OX4, CALM, PLEASANT AND COOPERATIVE c CARE. PATIENT USES CALL LIGHT APPROPRIATELY AND ABLE TO MAKE NEEDS KNOWN. PATIENT REPORTS PAIN 5/10 TO BACK, MEDICATED c PO TYLENOL c GOOD EFFECT. PATIENT DENIES CP/PRESSURE, N/V, SOB AND DIZZINESS. PATIENT ON 3L O2 AT BASELINE, LUNGS COARSE/CRACKLES T/O TO AUSCULTATION. PATIENT IS CONTINENCE OF BOWELS/BLADDER, USES BSC c SBA AND HAS EXCELLENT APPETITE. PATIENT HAS NO COMPLAINTS OR DENIES NEW CONCERNED THIS SHIFT. PATIENT RECEIVED SCHEDULED MEDS PER EMAR, VITALS SIGN REVIEWED. NO IV ACCESS PER ORDER. AWAITING PLACEMENT TO SNF. CALL LIGHT IN REACH.
[2023-10-26 17:46] VITALS: BP 105/65
[2023-10-26 20:13] VITALS: BP 117/69
[2023-10-27 02:19] VITALS: BP 107/60
--- NOTE | 2023-10-27 04:57 | NUR ---
Shift Summary Ms. Montes slept quietly most of the night. She did get up a couple of times to void. She is oreinted x 4 and uses her call light appropriately. Respirations regular and unalbored. Skin warm and dry. No complaints voiced. Bed in low position with call light in reach.
[2023-10-27 07:31] VITALS: BP 108/74
[2023-10-27 15:21] VITALS: BP 122/68
--- NOTE | 2023-10-27 17:27 | NUR ---
SHIFT SUMMARY: NO NEW CHANGES IN PATIENT CONDITION THIS SHIFT. PATIENT A/OX4, PLEASANT AND COOPERATIVE c CARE. PATIENT USES CALL LIGHT APPROPRIATLEY AND ABLE TO MAKE NEEDS KNOWN. PATIENT HAS GOOD APPETITE, CONTINENCE OF BOWELS/BLADDER, USES BSC c SBA. PATIENT HAS BEEN USING A FLUTTER THERAPY FOR BREATHING EXERCISE WHEN AWAKE T/O SHIFT. PATIENT STILL ON 3L O2 AT BASELINE. PATIENT HAS NO COMPLAINTS OR DENIES NEW CONCERNED THIS SHIFT. PATIENT RECEIVED SCHEDULED MEDS PER EMAR. VITAL SIGNS REVIEWED. NO IV ACCESS PER ORDER. PATIENT AWAITING FOR SNF MEDICAID AUTH AND SNF PLACEMENT. CALL LIGHT IN REACH.
[2023-10-27 18:00] VITALS: BP 132/68
[2023-10-27 20:13] VITALS: BP 107/65
[2023-10-28 03:02] VITALS: BP 122/66
[2023-10-28 07:26] VITALS: BP 109/72
--- NOTE | 2023-10-28 08:01 | NUR ---
SHIFT SUMMARY PT IS A&OX4, PLEASANT AND APPRECIATIVE. VSS ON 3L NC. C/O PAIN IN HER BACK AND TAILBONE, MEDICATED WITH PRN 650 MG OF TYLENOL. NO ACUTE CHANGES THIS SHIFT. NO IV PER ORDER. TOLERATING A SOFT BITE SIZE DIET, GOOD APPETITE, SNACKS FREQUENTLY T/O NOC. SBA TO BSC. ADEQUATE URINE OUTPUT. BED IN LOWEST POSITION, CALL LIGHT WITHIN REACH. CALLS APPROPRIATELY.
--- NOTE | 2023-10-28 09:00 | NUR ---
pt sitting up on side of the bed, awake, a/ox3, states she has short term memory loss, Dr. Snyder at bedside and OT working with her, a/ox3, pleasant and coopertive with care, follows commands well, lungs are course insp and exp, fontaine on right side are more dim, no cough noted, states she's breathing easier, currently on 3 liters 02 via n/c, which is her baseline, hrr, no edema noted, ppp+1, cap refill <3sec vs stable, afebrile, btx4, abd flat soft nontender, voids without diff, skin c/w/d, maew, jaycob, call light in reach.
[2023-10-28 15:48] VITALS: BP 117/60
[2023-10-28 19:39] VITALS: BP 106/68
[2023-10-29 03:49] VITALS: BP 118/69
--- NOTE | 2023-10-29 06:38 | NUR ---
SHIFT SUMMARY PT IS A&0X4, HAS SOME MEMORY LOSS PER PT. VSS ON 3L NC, THIS IS PT'S BASELINE OXYGEN USE. NO ACUTE CHANGES THIS SHIFT. C/O PAIN IN HER TAILBONE, MEDICATED PER EMAR. NO IV PER ORDER. TOLERATING A SOFT BITE SIZE DIET, GOOD APPETITE. SBA TO BSC. ADEQUATE URINE OUTPUT, NO BM THIS SHIFT. BED IN LOWEST POSITION, CALL LIGHT WITHIN REACH. CALLS APPROPRIATELY.
[2023-10-29 07:31] VITALS: BP 125/79
[2023-10-29 15:59] VITALS: BP 122/70
--- NOTE | 2023-10-29 18:45 | NUR ---
SHIFT [facility] PATIENT WIT NO ACUTE EVENTS DURING SHIFT. SHE USES CALL LIGHT APPROPRIATELY. SHE WAS OFFERED A WALK TWICE TODAY BY NURSING STAFF AND REFUSED DUE TO FATIGUE. PATIENT OTHERWISE PLEASANT AND COOPERATIVE WITH CARE. MEDICATED FOR PAIN PER EMAR WITH GOOD RELIEF. BED IN LOW POSITION, CALL LIGHT IN REACH.
[2023-10-29 20:04] VITALS: BP 118/64
[2023-10-30 04:33] VITALS: BP 107/68
[2023-10-30 06:33] LABS: BASOPHILS ABSOLUTE AUTO 0.03 K/mm3 (0.00-0.23); BASOPHILS PERCENT AUTO 0 % (0-2); EOSINOPHILS ABSOLUTE AUTO 0.23 K/mm3 (0.00-0.68); EOSINOPHILS PERCENT AUTO 3 % (0-6); Hematocrit 31.9 % (33.0-51.0); Hemoglobin 10.4 g/dL (11.5-16.0); Mean Corpuscular HGB 31.3 pg (26.0-34.0); Mean Corpuscular HGB Conc 32.6 g/dL (31.5-36.5); Mean Corpuscular Volume 96 fL (80-100); Platelet Count 250 K/mm3 (150-400); RDW Coefficient Variation 14.4 % (11.7-14.2); RDW Standard Deviation 50.6 fL (35.1-46.3); Red Blood Cell Count 3.32 M/mm3 (3.80-5.20); White Blood Cell Count 7.66 K/mm3 (4.00-11.30)
--- NOTE | 2023-10-30 06:47 | NUR ---
SHIFT SUMMARY PT IS A&OX4. VSS ON 3L NC. C/O PAIN IN HER TAILBONE AND HIP, MANAGED WITH PRN MEDICATION PER EMAR. NO ACUTE CHANGES OVER NOC. SBA TO BSC. VOIDING ADEQUATE AMOUNTS OF URINE. SMALL SOFT BM X2 THIS SHIFT. PT REALLY WANTS YOU TO PUT HER LEGS BACK IN THE BED AND COVER HER UP. SHE IS TOTALLY CAPABLE OF DOING THIS HERSELF. BED IN LOWEST POSITION, CALL LIGHT WITHIN REACH.
[2023-10-30 06:53] LABS: IMMATURE GRAN ABSOLUTE AUTO 0.02 K/mm3 (0.00-0.10); IMMATURE GRAN PERCENT AUTO 0 % (0-1); LYMPHOCYTES ABSOLUTE AUTO 1.75 K/mm3 (0.84-5.20); LYMPHOCYTES PERCENT AUTO 23 % (21-46); MONOCYTES ABSOLUTE AUTO 0.92 K/mm3 (0.16-1.47); MONOCYTES PERCENT AUTO 12 % (4-13); NEUTROPHILS ABSOLUTE AUTO 4.71 K/mm3 (1.96-9.15); NEUTROPHILS PERCENT AUTO 62 % (41-73)
[2023-10-30 06:55] LABS: Albumin, Blood 2.5 g/dL (3.4-5.0); Albumin/Globulin Ratio 0.8 (0.8-1.8); Bilirubin, Total 0.2 mg/dL (0.1-1.0); Calcium, Blood 8.5 mg/dL (8.5-10.1); Creatinine, Blood 0.53 mg/dL (0.40-1.00); Globulin, Blood 3.3 g/dL (2.2-4.0); Potassium, Blood 4.1 mmol/L (3.5-5.5); Total Protein, Blood 5.8 g/dL (6.4-8.2)
[2023-10-30 07:19] VITALS: BP 106/53
[2023-10-30 08:26] VITALS: BP 118/69
[2023-10-30 16:20] VITALS: BP 132/71
--- NOTE | 2023-10-30 19:43 | NUR ---
SHIFT SUMMARY PATIENT UP TO BATHROOM 1PERSON REJI WITH FWW AND GAIT BELT THROUGHOUT SHIFT. SHE REQUIRES POSITIVE REINFORCEMENT AND ENCOURAGEMENT TO PERFORM HER OWN ADLS INCLUDING PULLING UP PANTS AND WIPING SELF. SHE IS PLEASANT AND COOPERATIVE WITH CARE. NO ACUTE EVENTS DURING SHIFT, MEDICATED FOR PAIN PER EMAR WITH GOOD RELEIF. BED IN LOW POSITION, CALL LIGHT IN REACH. PATIENT ABLE TO MAKE NEEDS KNOWN.
[2023-10-30 20:26] VITALS: BP 127/79
[2023-10-31 02:25] VITALS: BP 117/63
--- NOTE | 2023-10-31 04:56 | NUR ---
SHIFT SUMMARY NOC PT A/O X 4. PLEASANT AND COOPERATIVE WITH CARE. NO ACUTE CHANGES TO REPORT. ON O2 3L/NC SPO2 > 92%. HAD C/O OF LOWERBACK/TAILBONE PAIN AND MEDICATED PER EMAR. 1PA TO BATHROOM. PT IS AWAITING SNF PLACEMENT. PT IS CURRENTLY RESTING WITH BED IN LOWEST POSITION, AND CALL LIGHT WITHIN REACH.
[2023-10-31 07:14] VITALS: BP 118/65
--- NOTE | 2023-10-31 17:37 | NUR ---
SHIFT SUMMARY Pt remains A&Ox3 this shift. VSS. Resp even nonlabored on her baseline 3L NC.Tolerating meals. Up to bathroom in FWW. Gen weakness noted, bed/chair alarm on. Pain and safety maintained. No acute changes noted, will continue to monitor.
[2023-10-31 19:43] VITALS: BP 123/74
[2023-11-01 02:53] VITALS: BP 105/65
--- NOTE | 2023-11-01 06:24 | NUR ---
SHIFT SUMMARY PT A&0x4 AND PLEASANT. PT VERY TALKATIVE. NO C/O PAIN. PT ABLE TO SLEEP THROUGH MOST OF THE NIGHT. VSS. NO ACUTE CHANGES. BED ALARM ON. BED IN LOWEST POSITION AND CALL LIGHT IN REACH.
[2023-11-01 06:31] LABS: Hematocrit 32.1 % (33.0-51.0); Hemoglobin 10.7 g/dL (11.5-16.0)
[2023-11-01 07:23] VITALS: BP 113/67
[2023-11-01 17:57] VITALS: BP 115/67
--- NOTE | 2023-11-01 18:15 | NUR ---
SHIFT SUMMARY A&O X 4, VSS. IS TALKATIVE. PT HAS BEEN WALKING TO RESTROOM. PHYS THERAPY WORKED WITH PT TODAY AND PHYS THERAPY REQUESTS THAT NO BSC BE PLACED IN ROOM. PT IS QUITE CAPABLE OF WALKING TO THE RESTROOM. PT ALSO AMBULATED THE HALLWAYS WITH THERAPIST TODAY & DID WELL. LRG SCAB ON PT'S BACK CAME OUT TODAY. SPOT WAS CLEANED WITH ALCOHOL & BANDAID PLACED. LRG SCAB TURNED OUT TO BE A DILATED PORE OF SONIA (LARGE HARDENED BLACKHEAD). PLAN IS FOR PLACEMENT.
[2023-11-01 20:09] VITALS: BP 120/73
--- NOTE | 2023-11-02 04:41 | NUR ---
SHIFT SUMMARY PT A&OX4. NO ACUTE CHANGES. PT CALLS APPROPRIATELY. 1 ASSISST WITH FWW TO BATHROOM 3 TIMES DURING THE NIGHT. MAINTAING SATS >95% ON 3L OF OXYGEN. PT SLEPT MOST OF THE NIGHT. VSS. BED IN LOWEST POSITION AND CALL LIGHT IN REACH.
[2023-11-02 04:50] VITALS: BP 118/67
[2023-11-02 07:20] VITALS: BP 119/69
[2023-11-02 13:57] LABS: SARS-Cov-2 (COVID-19) PCR, MMC NEGATIVE (NEGATIVE)
[2023-11-02] MEDS ORDERED: MELA3 PO (13:58)
[2023-11-02] MEDS ORDERED: ALBU90OI INH (13:58)
[2023-11-02] MEDS ORDERED: SENN187 PO (14:01)
[2023-11-02] MEDS ORDERED: IPRAT-ALBUT 0.5-3 ML INH (14:02)
--- NOTE | 2023-11-02 15:53 | NUR ---
DISCHARGE SUMMARY PATIENT IS ALERT AND ORIENTED X3. PATIENT HAS BEEN DISCHARGED TO SNF. PATIENT HAS HAD NO ACUTE EVENTS THIS SHIFT. VITAL SIGNS REVIEWED.
== END 2023-11-02 15:44 | DRG 871 ==
LOC: ER 17:44 → MEDS 23:55 → ENPENDDIS 10-17 13:45 → MEDS 11-02 15:44
PROVIDERS: Emergency Medicine; Family Medicine; Student in an Organized Health Care Education/Training Program; ADMIT Hospitalist
DX: A41.9 Sepsis, unspecified organism (principal); J18.9 Pneumonia, unspecified organism; J96.21 Acute and chronic respiratory failure with hypoxia; Z59.01 Sheltered homelessness; J44.1 Chronic obstructive pulmonary disease with (acute) exacerbation; F11.20 Opioid dependence, uncomplicated; J44.0 Chronic obstructive pulmonary disease with (acute) lower respiratory infection; K21.9 Gastro-esophageal reflux disease without esophagitis; M79.7 Fibromyalgia; I10 Essential (primary) hypertension; F32.9 Major depressive disorder, single episode, unspecified; R54 Age-related physical debility; Z66 Do not resuscitate; E87.6 Hypokalemia; K58.9 Irritable bowel syndrome, unspecified; F17.210 Nicotine dependence, cigarettes, uncomplicated; E86.0 Dehydration; G47.00 Insomnia, unspecified; Z99.81 Dependence on supplemental oxygen; Z88.0 Allergy status to penicillin; Z88.5 Allergy status to narcotic agent; Z88.8 Allergy status to other drugs, medicaments and biological substances; Z91.041 Radiographic dye allergy status; Z91.048 Other nonmedicinal substance allergy status; Z79.52 Long term (current) use of systemic steroids; Z79.899 Other long term (current) drug therapy; Z98.890 Other specified postprocedural states; Z11.52 Encounter for screening for COVID-19; Z87.81 Personal history of (healed) traumatic fracture; Z90.12 Acquired absence of left breast and nipple; Z59.811 Housing instability, housed, with risk of homelessness; Z85.3 Personal history of malignant neoplasm of breast
CPT/HCPCS: 0241U; 36415; 51701; 71045; 80048; 80053; 81001; 83605; 83880; 84484; 85014; 85018; 85025; 87040; 87086; 87507; 93005; 93010; 94640; 94644; 94664; 94760; 94761; 96365; 96367; 96375; 97110; 97116; 97162; 97165; 97530; 97535; 99285-25; A9270; J0456; J0696; J1650; J2930; J3475; J7030; J7050; J7512; P9612; U0002